=== PATIENT | male | born 1955 | race Caucasian/White ===

== ENCOUNTER 2019-05-13 08:05 | Emergency (ER) | payer OTHER ==
[~2019-05-13] VITALS: Ht 180.3 cm; Wt 97.1 kg
--- OUTSIDE RECORDS SUMMARY | 2019-05-13 08:08 | XMS REPORT ---
Author Author Admin, [place] Organization [facility] Public [facility] Services Address [address] [facility] [address] [place] [phone] Phone Allergies, Adverse Reactions, Alerts Allergy Name Reaction Description Start Date Severity Status Provider CODEINE Itchiness , headache Moderate Active Addison ASTORGA Conditions or Problems Problem Name Problem Code Onset Date Status Entry Date Provider Comment Standard Description Annotate Pharyngitis acute 462 Active Anh JOE Acute pharyngitis Insomnia 780.52 Active Addison ASTORGA Insomnia, unspecified Epicondylitis, right 726.32 Active Addison ASTORGA Lateral epicondylitis High risk sexual behavior V69.2 Active Addison ASTORGA High-risk sexual behavior Hyperlipidemia 272.4 Active Addison ASTORGA Other and unspecified hyperlipidemia Hypertension 401.9 Active Addison ASTORGA Unspecified essential hypertension Prostate cancer 185 Active Addison ASTORGA Malignant neoplasm of prostate Std screening V74.5 Active Addison ASTORGA Screening examination for venereal disease Preventative health care V70.0 Active Nora Church CMA Routine general medical examination at a health care facility Viral URI Inactive Anh JOE Viral URI Inactive Anh JOE Medication List Medication Instructions Start Date Stop Date Generic Name NDC Status Provider Patient Instruction ASPIRIN 81 MG ORAL TABLET DELAYED RELEASE 1 by mouth every day ASPIRIN 92964153170 Active Anh JOE Active TRAZODONE HCL 150 MG ORAL TABLET 1/2 by mouth nightly at bedtime TRAZODONE HCL 15962204373 Active Anh Khalil ENGINE LATHE OPERATOR Active WELLBUTRIN SR 150 MG ORAL TABLET EXTENDED RELEASE 12 HOUR 1 by mouth twice a day BUPROPION HCL 15808916415 Active Anh Remi TATYANA Active AMLODIPINE BESYLATE 5 MG ORAL TABLET 1 tab by mouth daily AMLODIPINE BESYLATE 54590155841 Active Addison ASTORGA Active CATAPRES 0.2 MG ORAL TABLET 1 by mouth twice a day CLONIDINE HCL 58729372483 Active Addison ASTORGA Active DESONIDE 0.05 % EXTERNAL CREAM apply to affected area twice daily DESONIDE 68568693882 Active Addison ASTORGA Active SIMVASTATIN 10 MG ORAL TABLET 1 by mouth every night SIMVASTATIN 52542709685 Active Addison ASTORGA Active TRUVADA 200-300 MG ORAL TABLET 1 by mouth daily EMTRICITABINE-TENOFOVIR 05321793176 Active Addison ASTORGA Active CLONAZEPAM 0.5 MG ORAL TABLET CLONAZEPAM 54716370430 Active Addison ASTORGA Active AZITHROMYCIN 250 MG ORAL TABLET 2 tablets by mouth on day one then one tablet by mouth each day for a total of 5 days AZITHROMYCIN 250 MG ORAL TABLET 166425 AZITHROMYCIN Inactive BROMFED DM 30-2-10 MG/5ML ORAL SYRUP 5 mL every four hours as needed for cough/congestion BROMFED DM 30-2-10 MG/5ML ORAL SYRUP 5245825 [id number] Inactive RESTORIL 15 MG ORAL CAPSULE 1 tab at at night as needed RESTORIL 15 MG ORAL CAPSULE 428581 TEMAZEPAM Inactive AZITHROMYCIN 500 MG ORAL TABLET 2 tabs by mouth single dose AZITHROMYCIN 500 MG ORAL TABLET 142264 AZITHROMYCIN Inactive TAMSULOSIN HCL 0.4 MG ORAL CAPSULE TAMSULOSIN HCL 0.4 MG ORAL CAPSULE 452500 TAMSULOSIN HCL Inactive AZITHROMYCIN 250 MG ORAL TABLET 2 tablets by mouth on day one then one tablet by mouth each day for a total of 5 days AZITHROMYCIN 76898356619 No Longer Active Addison ASTORGA Active BROMFED DM 30-2-10 MG/5ML ORAL SYRUP 5 mL every four hours as needed for cough/congestion [id number] 60395984673 No Longer Active Addison ASTORGA Active RESTORIL 15 MG ORAL CAPSULE 1 tab at at night as needed TEMAZEPAM 69760361614 No Longer Active Anh Khalil TATYANA Active AZITHROMYCIN 500 MG ORAL TABLET 2 tabs by mouth single dose AZITHROMYCIN 30517059454 No Longer Active Addison ASTORGA Active TAMSULOSIN HCL 0.4 MG ORAL CAPSULE TAMSULOSIN HCL 27939517016 No Longer Active Addison ASTORGA Active Advance Directives Directive Description Start Date LIVING WILL ON FILE POWER OF BEEF CATTLE GRAZIER Vital Signs Date Name Value Unit Range Description blood pressure, diastolic 74 mm[Hg] BP whit[place] blood pressure, systolic 114 mm[Hg] BP sys height E&M 72 [in_us] Bdy height pulse rate E&M 66 /min Heart rate respiratory rate E&M 18 /min Resp rate temperature E&M 98.1 [degF] Body temperature weight E&M 216 [lb_av] Weight Measured blood pressure, diastolic 86 mm[Hg] BP whit[place] blood pressure, systolic 139 mm[Hg] BP sys height E&M 72 [in_us] Bdy height pulse rate E&M 88 /min Heart rate temperature E&M 98.1 [degF] Body temperature weight E&M 223.13 [lb_av] Weight Measured blood pressure, diastolic, second observation 83 mm[Hg] BP whit[place] blood pressure, diastolic 84 mm[Hg] BP [place] blood pressure, systolic, second observation 122 mm[Hg] BP sys blood pressure, systolic 122 mm[Hg] BP sys height E&M 72 [in_us] Bdy height pulse rate E&M 67 /min Heart rate respiratory rate E&M 14 /min Resp rate temperature E&M 98.1 [degF] Body temperature weight E&M 225 [lb_av] Weight Measured blood pressure, diastolic 88 mm[Hg] BP whit[place] blood pressure, systolic 133 mm[Hg] BP sys height E&M 72 [in_us] Bdy height pulse rate E&M 76 /min Heart rate respiratory rate E&M 12 /min Resp rate temperature E&M 97.8 [degF] Body temperature weight E&M 220 [lb_av] Weight Measured Diagnostic Results Date Name Value Unit Range Description Lab Report: CBC With Differential/Platelet, Comp. Metabolic Panel (14), ... - Chemistry thyroid stimulating hormone, serum 2.730 u[iU]/mL 0.450-4.500 Lab Report: Comp. Metabolic Panel (14), Lipid Panel, Panel [id number], Cardi ... - Chemistry very low density lipoproteins 58 mg/dL 5-40 Lab Report: HBcAb+HBsAb+HBsAg+HCVAb, CBC With Differential/Platelet, Com ... - Chemistry hepatitis B surface antigen Negative Negative Lab Report: Comp. Metabolic Panel (14), RPR, Rfx Qn RPR/Confirm TP, Pane ... - Chemistry chloride, serum 101 mmol/L 96-106 Internal Other: Patient navigation 2 Prep Initiated (insured) - Chemistry HIV rapid test results negative Lab Report: HBcAb+HBsAb+HBsAg+HCVAb, CBC With Differential/Platelet, Com ... - Microbiology hepatitis A antibody, total Negative Negative Lab Report: Comp. Metabolic Panel (14), RPR, Rfx Qn RPR/Confirm TP, Pane ... - Chemistry urea nitrogen, blood 15 mg/dL 8-27 Lab Report: CBC With Differential/Platelet, Comp. Metabolic Panel (14), ... - Hematology mean corpuscular hemoglobin concentration, RBC 34.3 G/DL % 31.5-35.7 erythrocyte (RBC) count 4.99 X10E6/UL 10*6/mm3 4.14-5.80 Lab Report: HBcAb+HBsAb+HBsAg+HCVAb, CBC With Differential/Platelet, Com ... - Serology hepatitis C antibody, serum <0.1 0.0-0.9 Lab Report: CBC With Differential/Platelet, Comp. Metabolic Panel (14), ... - Chemistry Absolute Neutrophils 5.8 X10E3/UL 10*3/uL 1.4-7.0 Lab Report: Comp. Metabolic Panel (14), Lipid Panel, Panel [id number], Cardi ... - Chemistry LDL cholesterol, serum 78 mg/dL 0-99 Lab Report: Comp. Metabolic Panel (14), RPR, Rfx Qn RPR/Confirm TP, Pane ... - Chemistry urea nitrogen/creatinine ratio, serum 15 10-24 Lab Report: CBC With Differential/Platelet, Comp. Metabolic Panel (14), ... - Hematology mean corpuscular volume, RBC 94 fL 79-97 Lab Report: Comp. Metabolic Panel (14), Lipid Panel, Panel [id number], Cardi ... - Chemistry HDL cholesterol, serum 41 mg/dL >39 Lab Report: CBC With Differential/Platelet, Comp. Metabolic Panel (14), ... - Hematology monocytes as percent of blood leukocytes 8 % Not Estab. Lab Report: Comp. Metabolic Panel (14), RPR, Rfx Qn RPR/Confirm TP, Pane ... - Chemistry creatinine, serum 1.03 mg/dL 0.76-1.27 albumin/globulin ratio, serum 1.8 1.2-2.2 Lab Report: Comp. Metabolic Panel (14), Lipid Panel, Panel [id number], Cardi ... - Chemistry cholesterol, serum 177 mg/dL 100-199 Lab Report: Comp. Metabolic Panel (14), RPR, Rfx Qn RPR/Confirm TP, Pane ... - Chemistry bilirubin, serum, total 0.3 mg/dL 0.0-1.2 Lab Report: CBC With Differential/Platelet, Comp. Metabolic Panel (14), ... - Hematology Eosinophil Absolute Count 0.4 X10E3/UL 10*3/uL 0.0-0.4 Lab Report: Chlamydia/GC Amplification - Lab chlamydia DNA probe Negative Negative Lab Report: Comp. Metabolic Panel (14), RPR, Rfx Qn RPR/Confirm TP, Pane ... - Chemistry aspartate aminotransferase (SGOT), serum 25 U/L 0-40 Lab Report: CBC With Differential/Platelet, Comp. Metabolic Panel (14), ... - Hematology red blood cell distribution width 13.1 % 12.3-15.4 leukocyte count, blood 9.7 X10E3/UL 10*3/mm3 3.4-10.8 Lab Report: Comp. Metabolic Panel (14), RPR, Rfx Qn RPR/Confirm TP, Pane ... - Chemistry potassium, serum 4.3 mmol/L 3.5-5.2 albumin, serum 4.5 g/dL 3.6-4.8 Lab Report: Ct/GC GABBY, Rectal, Ct/GC GABBY, Pharyngeal - Microbiology Neisseria gonorrhoeae, throat culture Negative Negative Lab Report: CBC With Differential/Platelet, Comp. Metabolic Panel (14), ... - Chemistry immature granulocytes, percentage of total cells, blood 0 % Not Estab. Lab Report: CBC With Differential/Platelet, Comp. Metabolic Panel (14), ... - Hematology lymphocyte count, blood, automated 2.7 X10E3/UL 10*3/mm3 0.7-3.1 Lab Report: Chlamydia/GC Amplification - Microbiology Neisseria gonorrhoeae DNA probe Negative Negative Lab Report: CBC With Differential/Platelet, Comp. Metabolic Panel (14), ... - Hematology hematocrit, blood 47.0 % 37.5-51.0 Lab Report: Comp. Metabolic Panel (14), RPR, Rfx Qn RPR/Confirm TP, Pane ... - Chemistry sodium, serum 139 mmol/L 134-144 Lab Report: CBC With Differential/Platelet, Comp. Metabolic Panel (14), ... - Hematology neutrophils as percent of blood leukocytes 60 % Not Estab. basophils as percent of blood leukocytes 0 % Not Estab. Lab Report: Comp. Metabolic Panel (14), RPR, Rfx Qn RPR/Confirm TP, Pane ... - Serology rapid plasma reagin antibody, serum Non Reactive Non Reactive Lab Report: Comp. Metabolic Panel (14), RPR, Rfx Qn RPR/Confirm TP, Pane ... - Chemistry carbon dioxide, venous blood 24 mmol/L 20-29 Lab Report: HBcAb+HBsAb+HBsAg+HCVAb, CBC With Differential/Platelet, Com ... - Serology hepatitis B core antibody, total Positive Negative Lab Report: Comp. Metabolic Panel (14), Lipid Panel, Panel [id number], Cardi ... - Chemistry triglyceride, serum, fasting 291 mg/dL 0-149 Lab Report: Comp. Metabolic Panel (14), RPR, Rfx Qn RPR/Confirm TP, Pane ... - Chemistry calcium, serum 9.7 mg/dL 8.6-10.2 alanine aminotransferase (SGPT), serum 26 U/L 0-44 Lab Report: CBC With Differential/Platelet, Comp. Metabolic Panel (14), ... - Hematology mean corpuscular hemoglobin, RBC 32.3 pg 26.6-33.0 Lab Report: Comp. Metabolic Panel (14), RPR, Rfx Qn RPR/Confirm TP, Pane ... - Chemistry protein, total, serum 7.0 g/dL 6.0-8.5 alkaline phosphatase, serum 53 U/L 39-117 Lab Report: CBC With Differential/Platelet, Comp. Metabolic Panel (14), ... - Hematology hemoglobin, blood 16.1 g/dL 13.0-17.7 lymphocytes as percent of blood leukocytes 28 % Not Estab. Lab Report: CBC With Differential/Platelet, Comp. Metabolic Panel (14), ... - Chemistry hemoglobin A1C, blood, as % of total hemoglobin 5.3 % 4.8-5.6 Lab Report: Comp. Metabolic Panel (14), RPR, Rfx Qn RPR/Confirm TP, Pane ... - Genetics/fertility eGFR if 90 mL/min/1.73m2 >59 Lab Report: CBC With Differential/Platelet, Comp. Metabolic Panel (14), ... - Hematology basophil count, absolute 0.0 x10E3/uL 0.0-0.2 Lab Report: Ct/GC GABBY, Rectal, Ct/GC GABBY, Pharyngeal - Basic GC Rectum Negative Negative Lab Report: Comp. Metabolic Panel (14), RPR, Rfx Qn RPR/Confirm TP, Pane ... - Chemistry globulin, serum 2.5 1.5-4.5 Estimated Glomerular Filtration Rate (calc) 78 mL/min/1.73m2 >59 Lab Report: HBcAb+HBsAb+HBsAg+HCVAb, CBC With Differential/Platelet, Com ... - Serology hepatitis B surface antibody Reactive Lab Report: CBC With Differential/Platelet, Comp. Metabolic Panel (14), ... - Hematology eosinophils as percent of blood leukocytes 4 % Not Estab. Lab Report: Comp. Metabolic Panel (14), RPR, Rfx Qn RPR/Confirm TP, Pane ... - Chemistry blood glucose, random 99 mg/dL 65-99 Lab Report: CBC With Differential/Platelet, Comp. Metabolic Panel (14), ... - Hematology monocyte count, blood, automated 0.7 X10E3/UL 10*3/uL 0.1-0.9 platelet count 228 X10E3/UL 10*3/mm3 150-379 Encounters Date Encounter Provider Code Facility 09:34:25 CDT Est Patient Detailed - 03336 Addison ASTORGA CPT-14600 [facility] Adult Medicine 10:37:26 STEAM CLEANING MACHINE OPERATOR Ofc Vst, Est Level III Anh Khalil ENGINE LATHE OPERATOR CPT-53041 [facility] Adult Medicine 05:50:12 STEAM CLEANING MACHINE OPERATOR Est Patient Detailed - 15706 Addison ASTORGA CPT-01743 [facility] Adult Medicine 10:12:43 CDT Est Patient Detailed - 10376 Addison Pj ASTORGA CPT-90645 [facility] Adult [facility] 10:11:25 CDT Est Patient Detailed - 82133 Addison ASTORGA CPT-16038 [facility] Medicine 08:52:34 CDT Est Patient Exp Problem - 66960 Addison ASTORGA CPT-31930 [facility] Adult Medicine 05:45:28 STEAM CLEANING MACHINE OPERATOR New Patient Comprehensive - 30176 Addison ASTORGA CPT-04487 [facility] Adult Medicine Procedures Code Procedure Name Date Entry Date Standard Description CPT-HE001 Health Education/Supportive Counseling 17:06:51 CDT CPT-HE001 Health Education/Supportive Counseling 14:19:51 STEAM CLEANING MACHINE OPERATOR CPT-HE001 Health Education/Supportive Counseling 11:21:01 STEAM CLEANING MACHINE OPERATOR CPT-HE001 Health Education/Supportive Counseling 16:42:03 STEAM CLEANING MACHINE OPERATOR CPT-HE001 Health Education/Supportive Counseling 14:42:47 STEAM CLEANING MACHINE OPERATOR CPT-HE001 Health Education/Supportive Counseling 14:27:36 STEAM CLEANING MACHINE OPERATOR CPT-HE001 Health Education/Supportive Counseling 15:09:40 STEAM CLEANING MACHINE OPERATOR CPT-HE001 Health Education/Supportive Counseling 09:15:31 STEAM CLEANING MACHINE OPERATOR
--- OUTSIDE RECORDS SUMMARY | 2019-05-13 08:08 | XMS REPORT | Clinical Summary ---
Author Author LONNY [facility] TechnologiesSt[facility] CenterTenderTree[facility] Organization [facility] Address Unknown Phone Unavailable Care Team Providers Care Sweet Potato Disintegrator Name Role Phone Sharpless PCP Allergies Comments Active Allergy Reactions Severity Noted Date Codeine Itching 07/16/2017 Medications End Date Status Medication Sig Dispensed Refills Start Date Active traZODone (DESYREL) 150 1/2 by mouth 0 MG tablet nightly at 9 bedtime Active simvastatin (ZOCOR) 10 MG 1 by mouth 0 tablet every night 8 Active emtricitabine-tenofovir, 1 by mouth 0 TDF, (TRUVADA) 200-300 mg daily 8 Active cloNIDine HCl (CATAPRES) Take 0.2 mg 0 0.2 MG tablet by mouth. 8 Active buPROPion (WELLBUTRIN SR) Take 150 mg 0 150 MG 12 hr tablet by mouth. 9 Active clonazePAM (KLONOPIN) 0.5 Take 0.5 mg 0 MG tablet by mouth. 7 Active amLODIPine (NORVASC) 5 MG Take 5 mg by 0 tablet mouth. 8 Active aspirin-calcium carbonate Take 81 mg by 0 81 mg-300 mg calcium(777 mouth. mg) Tab 11/25/2019 Active albuterol HFA (VENTOLIN Inhale 2 1 Inhaler 0 HFA) 90 mcg/actuation puffs by 9 inhaler mouth via inhaler every 4 (four) hours as needed for Wheezing. 11/25/2018 Discontinued azithromycin (ZITHROMAX Use as 6 tablet 0 Z-RODRIGUEZ) 250 MG tablet directed, 1 7 pack. 07/16/2018 albuterol HFA (VENTOLIN Inhale 2 1 Inhaler 0 HFA) 90 mcg/actuation puffs by 7 inhaler mouth via inhaler every 4 (four) hours as needed for Wheezing. 11/25/2018 Discontinued inhalational spacing Use as 1 each 0 device (AEROCHAMBER) Spcr directed. 7 11/29/2018 predniSONE (DELTASONE) 20 Take 2 8 tablet 0 MG tablet tablets (40 9 mg total) by mouth daily for 4 days Next dose on Wednesday morning. Active Problems Not on file Encounters Care Team Description Date Type Specialty Bishnu Fleming MD Dyspnea, unspecified type (Primary Dx) 03/22/2019 Outside Orders Central Scheduling Michelle Floyd MD Viral upper respiratory tract infection (Primary Dx); Bronchospasm, acute 11/25/2018 Emergency Emergency Medicine 11/25/2018 Travel after 05/12/2018 Social History Date Tobacco Use Types Packs/Day Years Used Never Smoker Smokeless Tobacco: Never Used Alcohol Use Drinks/Week oz/Week Comments Yes Sex Assigned at Date Recorded Not on file Industry Job Start Date Occupation Not on file Not on file Not on file Travel End Travel History Travel Start No recent travel history available. Last Filed Vital Signs Time Taken Vital Sign Reading 11/25/2018 10:00 PM CDT Blood Pressure 131/75 11/25/2018 10:00 PM CDT Pulse 72 11/25/2018 10:00 PM CDT Temperature 36.5 C (97.7 F) 11/25/2018 10:00 PM CDT Respiratory Rate 16 11/25/2018 10:00 PM CDT Oxygen Saturation 93% - Inhaled Oxygen - Concentration 11/25/2018 8:36 PM CDT Weight 99.8 kg (220 lb) - Height - 11/25/2018 8:36 PM CDT Body Mass Index 30.68 Plan of Treatment Not on file Procedures Comments Procedure Name Priority Date/Time Associated Diagnosis XR CHEST 2 VIEWS STAT 11/25/2018 9:30 PM CDT after 05/12/2018 Results * XR chest 2 views (11/25/2018 9:30 PM CDT) Specimen Narrative Performed At FINAL REPORT [facility] Examination: Two view Chest X-ray. CLINICAL HISTORY: Cough COMPARISON: 07/16/2017 The cardiomediastinal and hilar contours are unremarkable. There is no focal consolidation, pleural effusion, pneumothorax or evidence of overt pulmonary edema. There is no acute bony abnormality. IMPRESSION: No acute abnormality. Signed: Kati Israel MD Report Verified Date/Time:11/25/2018 21:41:37 Reading Location: [address] Reading Room Procedure Note Interface, External Ris In - 11/25/2018 9:43 PM CDT FINAL REPORT Examination: Two view Chest X-ray. CLINICAL HISTORY: Cough COMPARISON: 07/16/2017 The cardiomediastinal and hilar contours are unremarkable. There is no focal consolidation, pleural effusion, pneumothorax or evidence of overt pulmonary edema. There is no acute bony abnormality. IMPRESSION: No acute abnormality. Signed: Kati Israel MD Report Verified Date/Time: 11/25/2018 21:41:37 Reading Location: [address] Reading Room Performing Organization Address City/State/Zipcode Phone Number RIS after 05/12/2018 Insurance Payer Benefit Subscriber ID Type Phone Address Plan / Group [employer] - [employer] C[employer]H xxxxxxxxxxx HMO/POS NETWORK
--- OUTSIDE RECORDS SUMMARY | 2019-05-13 08:08 | XMS REPORT ---
Author [facility] [place] Phone Unavailable Care Team Providers Care Capacity Planner Name Role Phone JANIA ASHLEY Unavailable Problems This patient has no known problems. Allergies, Adverse Reactions, Alerts This patient has no known allergies or adverse reactions. Medications This patient has no known medications. Encounters Start Date/Time End Date/Time Encounter Type Admission Type Attending Clinicians Care Facility Care Department Encounter ID 2016-10-19 12:06:00 2016-10-19 12:06:00 Outpatient [facility] [id number] Results Test Description Test Time Test Comments Text Results Atomic Results Result Comments RAD, CHEST, 2 VIEWS 2018-11-25 21:41:00 Reason for exam:->COUGH FINAL REPORT Examination: Two view Chest X-ray. CLINICAL HISTORY: Cough COMPARISON: 07/16/2017 The cardiomediastinal and hilar contours are unremarkable. There is no focal consolidation, pleural effusion, pneumothorax or evidence of overt pulmonary edema. There is no acute bony abnormality. IMPRESSION: No acute abnormality. Signed: Kati Israel Verified Date/Time: 11/25/2018 21:41:37 Reading Location: [address] Reading Room , CHEST, 2 VIEWS 2017-07-16 22:55:00 Reason for exam:->chest painShould this be performed at the bedside?->No FINAL REPORT TECHNIQUE: 2 views of the chest. COMPARISON: None FINDINGS: The cardiac silhouette is within normal limits. Mediastinum is unremarkable. Lungs are clear. No acute skeletal abnormality. Soft tissues appear unremarkable. IMPRESSION: No acute cardiopulmonary disease. Signed: Jessie Ashby Verified Date/Time: 07/16/2017 22:55:55 Reading Location: [address] Reading Room T XR 2 VIEWS CLINICAL INDICATION: J20.9 Acute bronchitis, unspecifiedTECHNIQUE: PA and lateral views of the chest.FINDINGS: Comparison study: noneThe lungs are clear. There are no infiltrates or effusions.The cardiac silhouette is unremarkable. The jannie and mediastinum are intact.The regional skeleton is intact.IMPRESSION:No acute abnormalities in the chest.
--- NOTE | 2019-05-13 08:46 | NUR ---
PT HAS STATES NUMEROUS TIMES, HE IS IN A HURRY AND WANTS TO GO QUICKLY. STATES HE'S IN A BIG HURRY.
== END 2019-05-13 08:50 | disposition home or self-care (01) ==
LOC: ER 08:05
DX: B02.9 Zoster without complications (principal); L73.9 Follicular disorder, unspecified; I10 Essential (primary) hypertension; E78.5 Hyperlipidemia, unspecified; Z85.46 Personal history of malignant neoplasm of prostate
CPT/HCPCS: 99282